=== PATIENT | female | born 1995 | race Caucasian/White ===

== ENCOUNTER 2018-08-13 16:42 | Emergency (ER) | payer OTHER ==
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
[2018-08-13 17:05] VITALS: TEMP 97
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
[2018-08-13] MEDS ORDERED: HYDROcodone 5MG/APAP 325MG 1 EA TAB PO ONE (17:50)
[2018-08-13 18:33] VITALS: BP 118/78; O2SAT 99
== END 2018-08-13 18:30 | disposition home or self-care (01) ==
LOC: ER 16:42
DX: S70.02XA Contusion of left hip, initial encounter (principal); S70.12XA Contusion of left thigh, initial encounter; V49.49XA Driver injured in collision with other motor vehicles in traffic accident, initial encounter; Y92.410 Unspecified street and highway as the place of occurrence of the external cause